=== PATIENT | female | born 1995 | race African-American/Black ===

== ENCOUNTER 2017-04-09 16:07 | Emergency (ER) | payer OTHER ==
[~2017-04-09] VITALS: Ht 167.6 cm; Wt 73.9 kg
[~2017-04-09 16:07] MED LIST: CLEOCIN HCL300 MG PO; KEFLEX500 MG PO; MACROBID 100 M100 M1 PO; MICONAZOLE 745 GM VG; NOHOMEMEDICATIONS; PHENERGAN25 MG RE; PRENATAL COMPL1 EACH PO; PRENATAL PO; PRENATAL TABLE1 EAC3 PO; TRINATE TABLET1 TAB PO; ZOFRAN ODT4 MG PO; ZOFRAN4 MG PO; ZPAK PO
[2017-04-09 17:10] LABS: URINE BILIRUBIN NEGATIVE (Negative); URINE BLOOD NEGATIVE (Negative); URINE COLOR YELLOW; URINE GLUCOSE-RANDOM* NEGATIVE (Negative); URINE KETONES NEGATIVE (Negative); URINE NITRITE NEGATIVE (Negative); URINE PROTEIN (DIPSTICK) NEGATIVE (Negative); URINE SPECIFIC GRAVITY 1.025 (1.003-1.035); URINE UROBILINOGEN 0.2 E.U./dl (0.2-1.0)
[2017-04-09 17:30] LABS: ABSOLUTE NEUTROPHILS 10.1 thou/uL (1.4-8.2); BASOPHILS 0.2 % (0.0-2.0); EOSINOPHILS 0.8 % (0.0-3.0); HEMATOCRIT 35.8 % (37.0-47.0); HEMOGLOBIN 11.4 gm/dL (12.0-15.0); LYMPHOCYTES 12.9 % (24.0-44.0); MCH 24.8 pg (26.0-34.0); MCHC 31.9 g/dL (28.0-37.0); MCV 77.9 fL (80.0-100.0); MONOCYTES 5.7 % (1.0-8.0); PLATELET COUNT 399 thou/uL (150-400); POLYS 80.4 % (36.0-66.0); WBC 12.6 thou/uL (4.0-11.0)
[2017-04-09 17:33] LABS: MANUAL DIFF NO
[2017-04-09 17:43] LABS: CASTS None Seen /LPF (None Seen); SQUAMOUS 4-10 Moderate /LPF (0-3)
[2017-04-09 17:44] LABS: CRYSTALS None Seen /LPF (None Seen); URINE RBC None Seen /HPF (0-2); URINE WBC 6-15 Few /HPF (0-5)
[2017-04-09 17:45] LABS: ALBUMIN 3.7 g/dL (3.4-5.0); ALKALINE PHOSPHATASE 102 U/L (46-116); CALCIUM 9.1 mg/dL (8.5-10.1); CREATININE 0.7 mg/dL (0.6-1.0); DIRECT BILIRUBIN < 0.1 mg/dL (<0.1-0.3); GLUCOSE 90 mg/dL (74-106); SGOT 21 U/L (15-37); SGPT 27 U/L (30-65); TOTAL BILIRUBIN 0.4 mg/dL (<0.1-1.0); TOTAL PROTEIN 7.3 g/dL (6.4-8.2)
[2017-04-09 17:54] LABS: CHLORIDE 106 mmol/L (98-107); POTASSIUM 3.8 mmol/L (3.5-5.1); SODIUM 140 mmol/L (136-145)
[2017-04-09 18:01] LABS: ANION GAP 8 mmol/L (7-16); BUN 13 mg/dL (7-18); CO2 26 mmol/L (21-32)
[2017-04-09] MEDS ORDERED: ONDANSETRON HCL4 M2 PO (18:26)
[2017-04-09] MEDS ORDERED: KEFLEX500 M1 PO (18:26)
[2017-04-09 18:50] VITALS: BP 109/58
== END 2017-04-09 18:51 | disposition home or self-care (01) ==
LOC: ER 16:07
PROVIDERS: Nurse Practitioner
DX: N39.0 Urinary tract infection, site not specified (principal); Z90.49 Acquired absence of other specified parts of digestive tract